=== PATIENT | male | born 1935 | race Caucasian/White ===

== ENCOUNTER 2017-01-12 06:12 | Inpatient (IN) ==
[2017-01-12] MEDS ORDERED: Acetaminophen 325 MG TABLET PO PRN (08:50)
[2017-01-12] MEDS ORDERED: Naloxone 0.4 MG/ML INJ IVP PRN (08:50)
--- NOTE | 2017-01-12 09:25 | Internal Med History&Physical ---
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 We will treat with broad- spectrum antibiotics. Follow blood culture results. If patient begins to make sputum, we will send sputum for culture. De-escalate antibiotics based on culture results. High risk for complications. Continue O2 supplementation. DVT prophylaxis with SCDs alone due to low platelet count. Qualifiers: Pneumonia type: due to methicillin-resistant Staphylococcus aureus (MRSA) Laterality: right Lung location: lower lobe of lung Qualified Code(s): J15.212 - Pneumonia due to Methicillin resistant Staphylococcus aureus (2) Pulmonary edema Current visit: Yes Status: Acute Acute pulmonary edema with shortness of breath. Treated with IV Lasix in the ER. We will continue. We will also get 2-D echocardiogram to look for underlying heart failure. Qualifiers: Chronicity: acute Qualified Code(s): J81.0 - Acute pulmonary edema (3) Neutropenic fever Current visit: Yes Status: Acute Due to CML and treatment for it. Will hold antileukemic agents for now. Consult oncology for further recommendations. (4) Anemia Current visit: Yes Status: Chronic Anemia is improving compared to prior values from earlier this month. Hemoglobin is 8.7. We will monitor blood counts. 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 (6) Acute and chronic respiratory failure with hypoxia Current visit: Yes Status: Acute From pneumonia and pulmonary edema. Continue O2 supplementation. Internal Medicine - H&P: HPI Chief complaint: Shortness of breath Admitted From: Emergency Dept Plans for Post Hospital Care: Home History of present illness: Mr. Parks is a 81 year old male patient with a history of CML, anemia related to it, COPD, hypertension and hyperlipidemia presented to the ER with complaints of acute shortness of breath that woke him up early this morning. He denies any chest pain, but has been having some fever. No nausea or vomiting. He had been admitted to [facility] for anemia earlier this month and received blood transfusion. At that time he had also complained of shortness of breath. Since then he had been prescribed oxygen although he has not yet gotten it set up. He has also noticed creasing swelling in his legs. He has never had any issues with his heart. No palpitations. He does have some dyspnea on exertion. Denies any cough. No hemoptysis. Past Med Surg Social Fam HX - Past Medical History Attestation: Yes The following information was validated with the patient. Medical history: cancer, COPD, hyperlipidemia, hypertension, other Psychiatric history: no psych history - Social History Smoking Status: Former smoker Smokeless Tobacco Status: No Alcohol use: none Drug use: none - Family History Brother Adopted: No Family Member Ethnicity: Non- Living Status: Still Living Hx Family Cardiac Disorders: No Hx Family Respiratory Disorders: Yes Hx Family Cancer: No Hx Family GI Disorders: No Hx Family Endocrine Disorder: No Hx Family Neuromuscular Disorders: No Hx Family Neurologic Disorders: No Hx Family HEENT Disorders: No Internal Medicine - H&P: Meds Aspirin 81 mg PO DAILY 11/29/16 [History] Carvedilol [Coreg] 25 mg PO BID 11/29/16 [History] Cyclobenzaprine [Flexeril] 10 mg PO HS 11/29/16 [History] Dasatinib [Sprycel] 100 mg PO DAILY 11/29/16 [History] Fluticasone/Salmeterol [Advair 100-50 Diskus] 1 puff IH Q12H 11/29/16 [History] Glimepiride [Amaryl] 4 mg PO DAILY 11/29/16 [History] Mirabegron [Myrbetriq] 50 mg PO DAILY 11/29/16 [History] Oxycodone HCl [Roxicodone 30 MG Immed Release] 30 mg PO Q4HR PRN 11/29/16 [ History] Pravastatin Sodium [Pravachol] 40 mg PO DAILY 11/29/16 [History] Zolpidem [Ambien] 5 mg PO HS 11/29/16 [History] Folic Acid 1 mg PO DAILY #90 tablet 12/01/16 [Rx] Levothyroxine [Synthroid] 25 mcg PO 0630 #30 tablet 12/01/16 [Rx] Oxygen 1 each .ROUTE AD #1 each 01/05/17 [Rx] Allergies ciprofloxacin Allergy (Unknown, Verified 01/12/17 04:02) Hives morphine Allergy (Unknown, Verified 01/12/17 04:02) Hallucinating Penicillins Allergy (Unknown, Verified 01/12/17 04:02) Swelling of Lip/Tongue/Throat All Systems PM: A 10-system review of systems was performed and is negative for pertinent findings except as documented above in the HPI. - Constitutional Constitutional: malaise, no chills, no fever(s), no night sweats - EENT Eyes: no change in vision, no discharge, no pain, no photophobia Ears: no ear discharge, no ear pain, no tinnitus Nose, mouth and throat: no dysphagia, no nasal discharge, no neck pain, no sore throat - Cardiovascular Cardiovascular ROS IM: dyspnea on exertion, edema, no chest pain, no diaphoresis , no dyspnea, no lightheadedness, no palpitations, no syncope - Respiratory Respiratory: dyspnea, dyspnea on exertion, no cough, no wheezing, no excessive phlegm production - Gastrointestinal Gastrointestinal: no abdominal pain, no diarrhea, no hematemesis, no hematochezia, no melena, no nausea, no vomiting - Musculoskeletal Musculoskeletal ROS IM: no numbness, no tingling - Integumentary Integumentary IM: no rash, no unusual bruising - Neurological Neurological ROS: no confusion, no convulsions, no focal weakness, no numbness, no tingling, no tremor(s) - Hematologic/Lymphatic Hematologic/Lymphatic: no easy bruising - Constitutional General appearance: Present: cooperative, mild distress, A&O X 3, answers questions appropriately - Eye Eye exam: Present: EOMI, PERRL, conjuntiva pink, sclera anicteric - Respiratory Respiratory exam: Absent: accessory muscle use, rales, rhonchi, wheezes Additional comments: Course breath sounds noted in right lower lobe - Cardiovascular Cardiovascular exam: Present: RRR, +S1, +S2. Absent: diastolic murmur, gallop, rubs, systolic murmur - GI/Abdominal GI/Abdominal exam: Present: normal bowel sounds, soft, no peritoneal signs. Absent: distended, tenderness - Extremities Exam Extremities exam: Present: pedal edema, warm, radial pulses palpable and symetrical. Absent: calf tenderness, cyanotic - Neurological Exam Neurological exam: Present: CN II-XII intact, oriented X3, no focal deficits, strengths equal and symetr throughout. Absent: facial droop, speech deficit - Skin Skin exam: Present: dry, intact Internal Med - H&P Results - Labs Labs: WBC 1.1, hemoglobin 8.7, platelets 59, neutrophils 500, BUN 19, creatinine 1.61 - Impressions Chest x-ray has been reviewed and shows pulmonary edema and focal right lower lobe infiltrate
[2017-01-12] MEDS ORDERED: Vancomycin 1,500 MG in D5% in Water 250 ML IVPB SCH (10:00)
[2017-01-12] MEDS ORDERED: Dextrose Gel 15 GM PO PRN ×2 (10:13)
[2017-01-12] MEDS ORDERED: *HR* Dextrose 50 % in Water (Syg) 50 ML SYRINGE IVP PRN (10:13)
[2017-01-12] MEDS ORDERED: D5% in Water 1,000 ML IVC PRN (10:13)
[2017-01-12] MEDS ORDERED: Vancomycin 1,750 MG in D5% in Water 500 ML IVPB ONE (11:00)
[2017-01-12] MEDS: Cefepime HCl 1,000 MG in D5% in Water (Mini-Bag+) 100 ML IVPB SCH ×2 (11:18→21:49)
[2017-01-12] MEDS: Insulin LISPRO 300 UNITS/3 ML VIAL SQ SCH ×3 (12:06→21:40)
[2017-01-12] MEDS: Furosemide 40 MG/4 ML VIAL IVP SCH (16:19)
--- NOTE | 2017-01-12 19:41 | Oncology Inp Consult Note ---
Date of Encounter: 01/12/17 Time of Encounter: 19:40 - Data of Consult Patient: known to practice within the last 3 years Consult date: 01/12/17 Requesting Physician: Uriel Blackwell MD Primary Care Provider: PCP NO - Consult Narrative Reason for consult: Chronic myelogenous leukemia, pancytopenia. History of present illness: Mr. Parks is a 81 year old male patient who is established with id in the clinic for management of recently diagnosed chronic myelogenous leukemia. I have summarized patient's heme/onc background below based on most recent office report (01/05/17): He initially presented with unexplained hematuria associated with 32Ib weight loss x 3 mths and was incidentally found to have an extremely leukocytosis with a WBC of 190,000 on 11/18 16. This was associated with anemia hemoglobin of 8.7 and normal platelet count. He also had some acute kidney dysfunction with a creatinine of 1.6. Abdomen CT showed significant splenomegaly (21 cm) with concern about infarct/ splenic lesions. He was transferred to [facility] for further evaluation and completed an extensive workup for his CBC abnormalities including: Bone marrow biopsy on 11/20/16 which confirmed presence of Preston chromosome and findings consistent with chronic phase CML with hypercellular marrow (95%). Bone marrow cytogenetics showed positive Preston chromosome in 19 of 20 cells analyzed typical of CML. No other cytogenetic abnormalities of deleterious mutations. Peripheral blood was positive for BCR ABL 1 P210 fusion transcript (41%) confirming CML diagnosis He was initially cyto-reduced with hydroxyurea and ultimately started on dasatinib 100 mg by mouth daily prior to discharge on 11/24/16. Extensive workup did not give an obvious explanation for his hematuria which was managed supportively resulting in improvement of his symptom after course of antibiotics for UTI. He also had hyperuricemia with uric acid of 10.9 on admission and was treated with rasburicase resulting in improvement of his uric acid level. Following improvement in his overall condition, he was discharged to outpatient hematology follow-up and decided to establish ongoing care with us for proximity to his home in [place]. Since his discharge, he has been having CBC monitoring her most recent CBC from 11/27/16 showed a WBC count of 48,000. Patient presents today for ongoing CML management and is accompanied by his daughter Desire who provided additional information. [facility] was kind enough to send the patient's records ahead of today's visit which I reviewed for clinical background. Records have been scanned to EMR as appropriate. At today's visit, he is doing quite well. No new physical complaints. Upon discharge, the made him an appointment to establish with oncology in [place] but he wants to keep his treatment closer and has decided to establish with us. He also has a follow-up appointment with Dr. Shirley Blancas at [facility] but she does not want to keep that appointment if he is able to continue his CML care close to home. Treatment summary: 11/24/16: Started dasatinib 100 mg by mouth daily for CML. Ongoing. Plan is to treat to progression or intolerance. Most recent imaging: CT abdomen and pelvis 11/18/16 at [facility] showed 21 cm splenomegaly with multiple large hypodense splenic lesions of uncertain etiology. Status post hemicolectomy with some bowel adhesions. Ventral and periumbilical hernia. Repeat ultrasound 12/05/16 showed 16 cm splenomegaly. He is currently hospitalized for hypoxemic respiratory failure due to right lower lobe pneumonia in the setting of neutropenic fever and pancytopenia. Over the course of the last several weeks, he has been having problems with cytopenias requiring transfusion most recently on 01/05/17 when we saw him in the office with pancytopenia. He has received a total of 6 units PRBC transfusion since 12/07/16. He cytopenias were treated to dasatinib therapy and was advised to stop dasatinib at his last office visit. Patient himself is somewhat of a poor historian and his daughter was very actively involved in his care and medical decision-makingis not present at time of seeing him. He is unable to verify that he actually did stop taking Sprycel. Workup for his cytopenias reveal fully deficiency and evidence of hypothyroidism and he was started on Synthroid and folate supplement. I am not sure that he has been taking those needed. Oncology is consulted regarding patient's underlying CMML and is currently presenting pancytopenia. Chest x-ray on admission showed cardiomegaly with bilateral pleural effusion. Echocardiogram 01/12/17 showed preserved LV EF. Patient seen and examined at bedside. Chart review for details of ongoing care by hospital team which is much appreciated. He reports significant improvement in his breathing symptoms. He is on supportive measures including: Empiric antibiotic coverage for pneumonia. Diuretics for pulmonary edema. Supplemental O2 for hypoxemic respiratory failure. Sprycel is on hold due to acute illness which I think is very reasonable. Sprycel can cause fluid retention including pulmonary edema and pleural effusion , cytopenias and metabolic abnormalities including thyroid dysfunction. Rest of past medical, surgical, family, social history detailed below and verified with patient today. Review of systems: 12 point review of systems performed with patient and positive findings noted in history of present illness. All other systems are negative: Physical exam: Vital Signs Temp 98.6 F 01/12/17 19:10 Pulse 80 01/12/17 19:10 Resp 18 01/12/17 19:10 BP 165/107 01/12/17 16:07 Pulse Ox 96 01/12/17 19:10 GENERAL: Alert and oriented, dyspenic appearing. Mental Status: Affect appropriate for circumstances HEENT: Sclerae anicteric. No mucositis or thrush. No other oral or pharyngeal lesions or erythema. Skin: No rashes or petechiae. No evidence of skin malignancy Lymph nodes: No cervical, supraclavicular, axillary, or inguinal adenopathy. Lungs: Clear to auscultation bilaterally. Clear to percussion bilaterally. Cardiovascular: Regular rate and rhythm. No gallops, murmurs, or rubs. Abdomen: Soft, nontender; No organomegaly or masses palpable. Extremities: No edema. No calf swelling or tenderness. No joint deformity. Neurologic: Alert, normal gait; no focal weakness or sensory abnormalities. Results: 01/12/17 01/12/17 04:18 04:18 WBC 1.1 L D Hgb 8.7 L D MCV 93.8 Plt Count 59 L D Neutrophils # 0.5 L Lymphocytes # 0.5 L Sodium 139 Potassium 4.3 Chloride 105 Creatinine 1.61 H Calcium 8.5 L Total Bilirubin 1.3 H AST 18 ALT 8 Alkaline Phosphatase 81 Serum Total Protein 7.1 Albumin 3.9 Radiographic studies: I personally reviewed and interpreted patient's most recent imaging studies dated 01/12/17. I discussed the findings with the patient today. Impression/recommendations: Chronic myelogenous leukemia: He has been on treatment with dasatinib since 11/24/16 and appears to have had an excellent response to treatment based on his most recent BCR/abl transcripts which is now down to about 6% from previous of 41% indicating response to ongoing treatment. Due to progressive pancytopenia requiring transfusion, we advised him to stop Sprycel on 01/05/17. I am not sure if he actually stopped Sprycel. I agree with hospitalist decision to hold Sprycel due to his acute illness. Once his overall condition improves, we will discuss options including resume a lower dose of Sprycel versus switching to alternative, less myelosuppressive TKI such as Gleevec or Tasigna. Pancytopenia: Likely multifactorial etiology. He has documented for the deficiency and hypothyroidism. I suspect that is a major contribution from the Sprycel and we will monitor for improvement in his counts while off Gleevec. Continue for the supplement and Synthroid as you are doing. We will transfuse RBC as needed for symptoms and to maintain hemoglobin of 7 or greater. Platelet transfusion to maintain platelet count of 20,000 or greater. He does have a history of treated prostate cancer although no indication of active prostate cancer as most recent PSA from 11/29/16 was undetectable. We'll follow the patient along side you during this hospitalization but please do not hesitate to call regarding interval hematologic questions as they arise. Thank you for your excellent ongoing care for allowing us to see him while in- house. This report was created using voice recognition software and may contain errors. It was signed but not edited to expedite communication. Corrections will be made in a separate addendum as needed. Past Med Surg Social Fam HX - Past Medical History Medical history: cancer, COPD, hyperlipidemia, hypertension, other Psychiatric history: no psych history - Social History Smoking Status: Former smoker Smokeless Tobacco Status: No Alcohol use: none Drug use: none - Family History Brother Adopted: No Family Member Ethnicity: Non- Living Status: Still Living Hx Family Cardiac Disorders: No Hx Family Respiratory Disorders: Yes Hx Family Cancer: No Hx Family GI Disorders: No Hx Family Endocrine Disorder: No Hx Family Neuromuscular Disorders: No Hx Family Neurologic Disorders: No Hx Family HEENT Disorders: No Medications and Allergies Aspirin 81 mg PO DAILY 11/29/16 [History] Carvedilol [Coreg] 25 mg PO BID 11/29/16 [History] Cyclobenzaprine [Flexeril] 10 mg PO HS 11/29/16 [History] Dasatinib [Sprycel] 100 mg PO 1400 11/29/16 [History] Fluticasone/Salmeterol [Advair 100-50 Diskus] 1 puff IH Q12H 11/29/16 [History] Glimepiride [Amaryl] 4 mg PO DAILY 11/29/16 [History] Oxycodone HCl [Roxicodone 30 MG Immed Release] 30 mg PO Q6H PRN 11/29/16 [ History] Pravastatin Sodium [Pravachol] 40 mg PO DAILY 11/29/16 [History] Zolpidem [Ambien] 5 mg PO HS PRN 11/29/16 [History] Folic Acid 1 mg PO DAILY #90 tablet 12/01/16 [Rx] Levothyroxine [Synthroid] 25 mcg PO 0630 #30 tablet 12/01/16 [Rx] Oxygen 1 each .ROUTE AD #1 each 01/05/17 [Rx] Allergies ciprofloxacin Allergy (Unknown, Verified 01/12/17 10:53) Hives morphine Allergy (Unknown, Verified 01/12/17 10:53) Hallucinating Penicillins Allergy (Unknown, Verified 01/12/17 10:53) Swelling of Lip/Tongue/Throat Oncology - Exam - Constitutional Vitals: Temp Pulse Resp BP Pulse Ox 98.6 F 80 18 165/107 96 01/12/17 19:10 01/12/17 19:10 01/12/17 19:10 01/12/17 16:07 01/12/17 19:10 Consult Discharge Plan - Plan Referrals: NO,PCP [Primary Care Provider] -
[2017-01-12] MEDS: Budesonide/Formoterol 80/4.5 MDI IH SCH (20:08)
[2017-01-12] MEDS: *HR* OxyCODONE Immed Rel 15 MG TABLET PO PRN (22:16)
[2017-01-13 05:47] LABS: Mean Corpuscular HGB Conc 33.2 g/dL (31.6-35.5)
[2017-01-13 05:48] LABS: Hematocrit 23.8 % (37.5-50.1); Hemoglobin 7.9 g/dL (12.9-16.9); Lymphocytes # 0.4 K/mcL (0.6-4.6); Lymphocytes % 52.5 %; Mean Corpuscular Hemoglobin 31.2 pg (28.0-33.3); Mean Corpuscular Volume 94.1 fL (83.0-100.0); Mean Platelet Volume 10.6 fL (9.4-12.4); Monocytes % 1.3 %; Neutrophils # 0.3 K/mcL (1.6-8.9); Red Blood Count 2.53 M/mcL (4.19-5.50); Red Cell Distribution Width 20.5 % (11.5-14.5); Segmented Neutrophils % 41.2 %
[2017-01-13 06:01] LABS: Calcium 8.4 mg/dL (8.6-10.8); Potassium 3.8 mEq/L (3.5-4.5)
[2017-01-13 06:08] LABS: Platelet Count 66 K/mcL (140-400)
[2017-01-13 06:17] LABS: Anisocytosis 2+ (Not Present); Polychromasia 2+ (Not Present)
[2017-01-13] MEDS: Levothyroxine 25 MCG TABLET PO SCH (06:17)
[2017-01-13 06:18] LABS: Platelet Estimate Marked Decrease (Normal); Poikilocytosis 1+ (Not Present)
[2017-01-13] MEDS: Budesonide/Formoterol 80/4.5 MDI IH SCH ×2 (07:51→20:09)
[2017-01-13] MEDS: Insulin LISPRO 300 UNITS/3 ML VIAL SQ SCH ×4 (08:30→21:16)
[2017-01-13] MEDS: Cefepime HCl 1,000 MG in D5% in Water (Mini-Bag+) 100 ML IVPB SCH (08:30)
[2017-01-13] MEDS: Levofloxacin 750 MG/150 ML 750 MG/150 ML BAG IVPB SCH (08:30)
[2017-01-13] MEDS: Aspirin 81 MG TAB.CHEW PO SCH (08:30)
[2017-01-13] MEDS: Folic Acid 1 MG TABLET PO SCH (08:30)
[2017-01-13] MEDS: Furosemide 40 MG/4 ML VIAL IVP SCH ×2 (08:30→17:07)
--- NOTE | 2017-01-13 10:48 | Internal Med Progress Note ---
Date of Encounter: 01/13/17 Time of Encounter: 10:45 - Assessment and plan (1) Neutropenic fever Current Visit: Yes Status: Acute Assessment and plan: Possibly secondary to chemotherapy, diagnosed with healthcare associated pneumonia present upon admission in the setting of acute neutropenic fever Increased dose of cefepime to 2000 mg twice a day, continue Levaquin and vancomycin IV Neutropenic precautions, neutropenic diet Followed by oncology Sputum culture (2) Diastolic CHF Current Visit: Yes Status: Acute Assessment and plan: Echocardiac exam shows an ejection fraction of 60-65% with mild diastolic dysfunction Continue Lasix IV, strict I's and O's and daily weight Qualifiers: Congestive heart failure chronicity: acute Qualified Code(s): I50.31 - Acute diastolic (congestive) heart failure (3) Chronic kidney disease, stage III (moderate) Current Visit: Yes Status: Acute (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 showed significant splenomegaly (21 cm) with concern about infarct/ splenic lesions. He was transferred to [facility] for further evaluation and completed an extensive workup for his CBC abnormalities including: Bone marrow biopsy on 11/20/16 which confirmed presence of Novelty chromosome and findings consistent with chronic phase CML with hypercellular marrow (95%). Bone marrow cytogenetics showed positive Novelty chromosome in 19 of 20 cells analyzed typical of CML. No other cytogenetic abnormalities of deleterious mutations. Peripheral blood was positive for BCR ABL 1 P210 fusion transcript (41%) confirming CML diagnosis (5) Pulmonary edema Current Visit: Yes Status: Acute Assessment and plan: Secondary to diastolic CHF Qualifiers: Chronicity: acute Qualified Code(s): J81.0 - Acute pulmonary edema (6) Pancytopenia Current Visit: Yes Status: Acute Assessment and plan: Secondary to CML - Subjective Interval history: has been complaining of increased phlegm production , bilateral costal pleuritic pain, no fever, no abdominal pain , no dysuria, no diarrhea, no CP - Constitutional Vitals: Temp Pulse Resp BP Pulse Ox 98.0 F 84 18 166/71 96 01/13/17 08:29 01/13/17 08:29 01/13/17 08:29 01/13/17 08:29 01/13/17 08:29 General appearance: Present: cooperative, mild distress, A&O X 3, answers questions appropriately - Head Head exam: Present: atraumatic, normocephalic - Eye Eye exam: Present: PERRL, conjuntiva pink, sclera anicteric Pupils: Present: PERRL - Neck Neck exam general surgery: Present: supple, trachea midline. Absent: lymphadenopathy - Respiratory Respiratory exam: Present: CTAB, rales (Bibasilar blunted breath sounds with minimal crackles). Absent: accessory muscle use, rhonchi, wheezes - Cardiovascular Cardiovascular exam: Present: RRR, +S1, +S2. Absent: diastolic murmur, gallop, rubs, systolic murmur - GI/Abdominal GI/Abdominal exam: Present: normal bowel sounds, soft, no peritoneal signs. Absent: distended, tenderness - Extremities Exam Extremities exam: Present: pedal edema (+1 pitting edema both lower extremities) , warm, radial pulses palpable and symetrical. Absent: calf tenderness, cyanotic - Neurological Exam Neurological exam: Present: CN II-XII intact, oriented X3, no focal deficits. Absent: pronater drift, facial droop, speech deficit - Skin Skin exam: Present: dry, intact Internal Medicine: Result - Labs CBC & Chem 7: 01/13/17 04:34 01/13/17 04:34 Labs: Short CBC 01/13/17 Range/Units 04:34 WBC 0.8 L* (4.3-11.1) K/mcL Hgb 7.9 L (12.9-16.9) g/dL Hct 23.8 L (37.5-50.1) % Plt Count 66 L (140-400) K/mcL Neutrophils # 0.3 L (1.6-8.9) K/mcL BMP 01/13/17 04:34 Sodium 140 Potassium 3.8 Chloride 105 Carbon Dioxide 27 BUN 20 Creatinine 1.57 H Glucose 92 Calcium 8.4 L - VTE Documentation of Mechanical Device: Intermittent pneumatic compression device Consult Discharge Plan - Plan Referrals: NO,PCP [Primary Care Provider] -
[2017-01-13] MEDS: Cefepime HCl 2,000 MG in D5% in Water (Mini-Bag+) 100 ML IVPB SCH ×2 (11:25→17:07)
[2017-01-13] MEDS: *HR* OxyCODONE Immed Rel 15 MG TABLET PO PRN (11:34)
[2017-01-13] MEDS: Vancomycin 1,500 MG in D5% in Water 250 ML IVPB SCH (12:37)
[2017-01-14 06:22] LABS: Eosinophils % 5.2 %; Hematocrit 22.2 % (37.5-50.1); Hemoglobin 7.6 g/dL (12.9-16.9); Lymphocytes # 0.4 K/mcL (0.6-4.6); Lymphocytes % 51.9 %; Mean Corpuscular HGB Conc 34.2 g/dL (31.6-35.5); Mean Corpuscular Hemoglobin 31.7 pg (28.0-33.3); Mean Corpuscular Volume 92.5 fL (83.0-100.0); Mean Platelet Volume 10.5 fL (9.4-12.4); Monocytes % 2.6 %; Neutrophils # 0.3 K/mcL (1.6-8.9); Red Cell Distribution Width 20.4 % (11.5-14.5); Segmented Neutrophils % 40.3 %
[2017-01-14 06:30] LABS: Platelet Count 74 K/mcL (140-400)
[2017-01-14 06:32] LABS: Calcium 8.5 mg/dL (8.6-10.8); Potassium 3.8 mEq/L (3.5-4.5)
[2017-01-14] MEDS: Cefepime HCl 2,000 MG in D5% in Water (Mini-Bag+) 100 ML IVPB SCH ×2 (06:38→17:57)
[2017-01-14] MEDS: Levothyroxine 25 MCG TABLET PO SCH (06:39)
[2017-01-14] MEDS: *HR* OxyCODONE Immed Rel 15 MG TABLET PO PRN ×3 (06:45→22:07)
[2017-01-14 07:30] LABS: Platelet Estimate Decreased (Normal)
[2017-01-14] MEDS: Budesonide/Formoterol 80/4.5 MDI IH SCH ×2 (07:30→20:43)
[2017-01-14 07:31] LABS: Anisocytosis 2+ (Not Present); Poikilocytosis 1+ (Not Present)
[2017-01-14] MEDS: Furosemide 40 MG/4 ML VIAL IVP SCH ×2 (08:53→16:10)
[2017-01-14] MEDS: Aspirin 81 MG TAB.CHEW PO SCH (08:53)
[2017-01-14] MEDS: Folic Acid 1 MG TABLET PO SCH (08:53)
[2017-01-14] MEDS: Insulin LISPRO 300 UNITS/3 ML VIAL SQ SCH ×4 (08:54→22:13)
[2017-01-14] MEDS: Vancomycin 1,500 MG in D5% in Water 250 ML IVPB SCH (11:45)
--- NOTE | 2017-01-14 12:23 | Internal Med Progress Note ---
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, diagnosed with healthcare associated pneumonia present upon admission in the setting of acute neutropenic fever Chest x-ray showed right lower lobe opacity compatible with pneumonia On cefepime to 2000 mg twice a day, continue Levaquin and vancomycin IV day 2 Neutropenic precautions, neutropenic diet Hold Sprycel Followed by oncology Sputum culture (2) Diastolic CHF Current Visit: Yes Status: Acute Assessment and plan: Echocardiac exam shows an ejection fraction of 60-65% with mild diastolic dysfunction Continue Lasix IV, strict I's and O's and daily weight Qualifiers: Congestive heart failure chronicity: acute Qualified Code(s): I50.31 - Acute diastolic (congestive) heart failure (3) Chronic kidney disease, stage III (moderate) Current Visit: Yes Status: Acute (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 showed significant splenomegaly (21 cm) with concern about infarct/ splenic lesions. He was transferred to [facility] for further evaluation and completed an extensive workup for his CBC abnormalities including: Bone marrow biopsy on 11/20/16 which confirmed presence of [place] chromosome and findings consistent with chronic phase CML with hypercellular marrow (95%). Bone marrow cytogenetics showed positive [place] chromosome in 19 of 20 cells analyzed typical of CML. No other cytogenetic abnormalities of deleterious mutations. Peripheral blood was positive for BCR ABL 1 P210 fusion transcript (41%) confirming CML diagnosis (5) Pulmonary edema Current Visit: Yes Status: Acute Assessment and plan: Secondary to diastolic CHF Qualifiers: Chronicity: acute Qualified Code(s): J81.0 - Acute pulmonary edema (6) Pancytopenia Current Visit: Yes Status: Acute Assessment and plan: Secondary to CML - Subjective Interval history: Mentions he has less phlegm production , bilateral costal pleuritic pain has improved, no fever, no abdominal pain , no dysuria, no diarrhea, no CP - Constitutional Vitals: Temp Pulse Resp BP Pulse Ox 98.2 F 96 20 139/67 96 01/14/17 08:31 01/14/17 08:31 01/14/17 08:31 01/14/17 08:31 01/14/17 08:31 General appearance: Present: cooperative, mild distress, A&O X 3, answers questions appropriately - Head Head exam: Present: atraumatic, normocephalic - Eye Eye exam: Present: PERRL, conjuntiva pink, sclera anicteric Pupils: Present: PERRL - Neck Neck exam general surgery: Present: supple, trachea midline. Absent: lymphadenopathy - Respiratory Respiratory exam: Present: CTAB. Absent: accessory muscle use, rales, rhonchi, wheezes - Cardiovascular Cardiovascular exam: Present: RRR, +S1, +S2. Absent: diastolic murmur, gallop, rubs, systolic murmur - GI/Abdominal GI/Abdominal exam: Present: normal bowel sounds, soft, no peritoneal signs. Absent: distended, tenderness - Extremities Exam Extremities exam: Present: warm, radial pulses palpable and symetrical. Absent : calf tenderness, cyanotic, pedal edema - Neurological Exam Neurological exam: Present: CN II-XII intact, oriented X3, no focal deficits. Absent: pronater drift, facial droop, speech deficit - Skin Skin exam: Present: dry, intact Internal Medicine: Result - Labs CBC & Chem 7: 01/14/17 06:09 01/14/17 06:09 Labs: Short CBC 01/14/17 Range/Units 06:09 WBC 0.8 L* (4.3-11.1) K/mcL Hgb 7.6 L (12.9-16.9) g/dL Hct 22.2 L (37.5-50.1) % Plt Count 74 L (140-400) K/mcL Neutrophils # 0.3 L (1.6-8.9) K/mcL BMP 01/14/17 06:09 Sodium 140 Potassium 3.8 Chloride 104 Carbon Dioxide 24 BUN 19 Creatinine 1.54 H Glucose 105 H Calcium 8.5 L - VTE Documentation of Mechanical Device: Intermittent pneumatic compression device Consult Discharge Plan - Plan Referrals: NO,PCP [Primary Care Provider] -
[2017-01-14] MEDS: Ondansetron 4 MG/2 ML VIAL IVP PRN (22:07)
[2017-01-15 03:20] LABS: Hemoglobin 7.3 g/dL (12.9-16.9)
[2017-01-15 03:22] LABS: Eosinophils # 0.1 K/mcL (0.0-0.6); Hematocrit 22.1 % (37.5-50.1); Immature Granulocytes % 1.2 % (0-4); Lymphocytes # 0.5 K/mcL (0.6-4.6); Lymphocytes % 52.3 %; Mean Corpuscular Hemoglobin 30.9 pg (28.0-33.3); Mean Corpuscular Volume 93.6 fL (83.0-100.0); Monocytes % 2.3 %; Neutrophils # 0.3 K/mcL (1.6-8.9); Red Blood Count 2.36 M/mcL (4.19-5.50); Red Cell Distribution Width 20.8 % (11.5-14.5); Segmented Neutrophils % 37.2 %
[2017-01-15 03:34] LABS: Calcium 8.5 mg/dL (8.6-10.8); Potassium 3.7 mEq/L (3.5-4.5)
[2017-01-15 03:42] LABS: Platelet Count 84 K/mcL (140-400)
[2017-01-15 03:45] LABS: Anisocytosis 2+ (Not Present); Macrocytosis Present (Not Present); Platelet Estimate Decreased (Normal); Polychromasia 1+ (Not Present)
[2017-01-15] MEDS: Cefepime HCl 2,000 MG in D5% in Water (Mini-Bag+) 100 ML IVPB SCH ×2 (06:44→17:52)
[2017-01-15] MEDS: *HR* OxyCODONE Immed Rel 15 MG TABLET PO PRN ×2 (06:45→12:52)
[2017-01-15] MEDS: Levothyroxine 25 MCG TABLET PO SCH (06:45)
[2017-01-15] MEDS: Insulin LISPRO 300 UNITS/3 ML VIAL SQ SCH ×4 (07:52→20:54)
[2017-01-15] MEDS: Furosemide 40 MG/4 ML VIAL IVP SCH (08:03)
[2017-01-15] MEDS: Levofloxacin 750 MG/150 ML 750 MG/150 ML BAG IVPB SCH (08:04)
[2017-01-15] MEDS: Aspirin 81 MG TAB.CHEW PO SCH (08:04)
[2017-01-15] MEDS: Folic Acid 1 MG TABLET PO SCH (08:04)
--- NOTE | 2017-01-15 09:02 | Internal Med Progress Note ---
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, diagnosed with healthcare associated pneumonia present upon admission in the setting of acute neutropenic fever Chest x-ray showed right lower lobe opacity compatible with pneumonia continue cefepime and Levaquin day 3 discontinue vancomycin IV at day 3 ( BP normal and creatinin is raising) Neutropenic precautions, neutropenic diet Hold Sprycel Followed by oncology Sputum culture (2) Diastolic CHF Current Visit: Yes Status: Acute Assessment and plan: Echocardiac exam shows an ejection fraction of 60-65% with mild diastolic dysfunction much improved Stop Lasix IV, strict I's and O's and daily weight Qualifiers: Congestive heart failure chronicity: acute Qualified Code(s): I50.31 - Acute diastolic (congestive) heart failure (3) Chronic kidney disease, stage III (moderate) Current Visit: Yes Status: Acute (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 showed significant splenomegaly (21 cm) with concern about infarct/ splenic lesions. He was transferred to [facility] for further evaluation and completed an extensive workup for his CBC abnormalities including: Bone marrow biopsy on 11/20/16 which confirmed presence of [place] chromosome and findings consistent with chronic phase CML with hypercellular marrow (95%). Bone marrow cytogenetics showed positive [place] chromosome in 19 of 20 cells analyzed typical of CML. No other cytogenetic abnormalities of deleterious mutations. Peripheral blood was positive for BCR ABL 1 P210 fusion transcript (41%) confirming CML diagnosis (5) Pulmonary edema Current Visit: Yes Status: Acute Assessment and plan: Secondary to diastolic CHF Qualifiers: Chronicity: acute Qualified Code(s): J81.0 - Acute pulmonary edema (6) Pancytopenia Current Visit: Yes Status: Acute Assessment and plan: Secondary to CML - Subjective Interval history: Mentioned that he has less phlegm production , bilateral costal pleuritic pain has improved, no fever, no abdominal pain , no dysuria, no diarrhea, no CP, leg edema has come down - Constitutional Vitals: Temp Pulse Resp BP Pulse Ox 97.5 F L 90 18 111/61 95 01/15/17 07:35 01/15/17 07:35 01/15/17 07:35 01/15/17 07:35 01/15/17 08:08 General appearance: Present: cooperative, mild distress, A&O X 3, answers questions appropriately - Head Head exam: Present: atraumatic, normocephalic - Eye Eye exam: Present: PERRL, conjuntiva pink, sclera anicteric Pupils: Present: PERRL - Neck Neck exam general surgery: Present: supple, trachea midline. Absent: lymphadenopathy - Respiratory Respiratory exam: Present: decreased breath sounds, CTAB. Absent: accessory muscle use, rales, rhonchi, wheezes - Cardiovascular Cardiovascular exam: Present: RRR, +S1, +S2. Absent: diastolic murmur, gallop, rubs, systolic murmur - GI/Abdominal GI/Abdominal exam: Present: normal bowel sounds, soft, no peritoneal signs. Absent: distended, tenderness - Extremities Exam Extremities exam: Present: warm, radial pulses palpable and symetrical. Absent : calf tenderness, cyanotic, pedal edema - Neurological Exam Neurological exam: Present: CN II-XII intact, oriented X3, no focal deficits. Absent: pronater drift, facial droop, speech deficit - Skin Skin exam: Present: dry, intact Internal Medicine: Result - Labs CBC & Chem 7: 01/15/17 03:06 01/15/17 03:06 Labs: Short CBC 01/15/17 Range/Units 03:06 WBC 0.9 L* (4.3-11.1) K/mcL Hgb 7.3 L (12.9-16.9) g/dL Hct 22.1 L (37.5-50.1) % Plt Count 84 L (140-400) K/mcL Neutrophils # 0.3 L (1.6-8.9) K/mcL BMP 01/15/17 03:06 Sodium 139 Potassium 3.7 Chloride 103 Carbon Dioxide 27 BUN 22 Creatinine 1.82 H Glucose 105 H Calcium 8.5 L - VTE Documentation of Mechanical Device: Intermittent pneumatic compression device Consult Discharge Plan - Plan Referrals: NO,PCP [Primary Care Provider] -
[2017-01-15] MEDS ORDERED: Aminoglycoside Consult 1 EACH MC ONE (10:03)
[2017-01-15] MEDS: Budesonide/Formoterol 80/4.5 MDI IH SCH ×2 (11:00→20:43)
[2017-01-15] MEDS: Ondansetron 4 MG/2 ML VIAL IVP PRN (16:22)
[2017-01-16 04:45] LABS: Hemoglobin 6.8 g/dL (12.9-16.9); Red Cell Distribution Width 21.1 % (11.5-14.5)
[2017-01-16 04:46] LABS: Hematocrit 20.6 % (37.5-50.1); Mean Corpuscular Hemoglobin 31.1 pg (28.0-33.3); Mean Corpuscular Volume 94.1 fL (83.0-100.0); Mean Platelet Volume 10.7 fL (9.4-12.4); Red Blood Count 2.19 M/mcL (4.19-5.50); Segmented Neutrophils % 38.1 %
[2017-01-16 04:47] LABS: Eosinophils % 5.6 %; Immature Granulocytes % 1.4 % (0-4); Lymphocytes # 0.4 K/mcL (0.6-4.6); Lymphocytes % 50.7 %; Monocytes % 4.2 %; Neutrophils # 0.3 K/mcL (1.6-8.9)
[2017-01-16 05:00] LABS: Calcium 8.7 mg/dL (8.6-10.8); Potassium 3.9 mEq/L (3.5-4.5)
[2017-01-16 05:18] LABS: Platelet Count 98 K/mcL (140-400)
[2017-01-16 05:21] LABS: Platelet Estimate Marked Decrease (Normal)
[2017-01-16] MEDS: Levothyroxine 25 MCG TABLET PO SCH (05:47)
[2017-01-16] MEDS: Cefepime HCl 2,000 MG in D5% in Water (Mini-Bag+) 100 ML IVPB SCH (05:47)
[2017-01-16] MEDS: Folic Acid 1 MG TABLET PO SCH (08:47)
[2017-01-16] MEDS: Aspirin 81 MG TAB.CHEW PO SCH (08:48)
[2017-01-16] MEDS: Pantoprazole 40 MG VIAL IVP SCH (08:48)
[2017-01-16] MEDS: Insulin LISPRO 300 UNITS/3 ML VIAL SQ SCH ×4 (08:50→20:12)
[2017-01-16] MEDS: *HR* OxyCODONE Immed Rel 15 MG TABLET PO PRN ×3 (08:52→20:10)
[2017-01-16] MEDS: Budesonide/Formoterol 80/4.5 MDI IH SCH ×2 (10:28→21:11)
[2017-01-16] MEDS ORDERED: 0.9 % Sodium Chloride 250 ML ONE (17:47)
--- NOTE | 2017-01-16 18:12 | Internal Med Progress Note ---
Date of Encounter: 01/16/17 Time of Encounter: 15:00 - Assessment and plan (1) Chronic diastolic heart failure Current Visit: Yes Status: Acute Assessment and plan: He was taking Lasix at home. Currently creatinine is increasing. Lasix was held. I will continue to hold and monitor clinically. (2) DVT prophylaxis Current Visit: Yes Status: Acute Assessment and plan: SCDs only as he is a not a candidate for pharmacological prophylaxis due to thrombocytopenia. Once platelet count greater than 100 we will consider starting heparin subcutaneous. 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 showed significant splenomegaly (21 cm) with concern about infarct/ splenic lesions. He was transferred to [facility] for further evaluation and completed an extensive workup for his CBC abnormalities including: Bone marrow biopsy on 11/20/16 which confirmed presence of [place] chromosome and findings consistent with chronic phase CML with hypercellular marrow (95%). Bone marrow cytogenetics showed positive [place] chromosome in 19 of 20 cells analyzed typical of CML. No other cytogenetic abnormalities of deleterious mutations. Peripheral blood was positive for BCR ABL 1 P210 fusion transcript (41%) confirming CML diagnosis (4) Neutropenic fever Current Visit: Yes Status: Acute Assessment and plan: 12/16/2016: We will continue with cefepime and Levaquin. Follow-up cultures. 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 (6) Chronic kidney disease, stage III (moderate) Current Visit: Yes Status: Acute Assessment and plan: Worsening today. Likely acute on chronic renal failure. We will avoid nephrotoxins. We will start IV fluids are atenolol 1000 mL. Monitor kidney function. If worsening will obtain imaging. - Subjective Interval history: 01/16/2017: The patient was admitted 4 days ago and treated for neutropenic fever and pneumonia. Today he has confused and agitated and cannot provide any history due to delirium. - Constitutional Vitals: Temp Pulse Resp BP Pulse Ox 97.6 F 86 18 151/60 93 01/16/17 15:17 01/16/17 15:17 01/16/17 15:17 01/16/17 15:17 01/16/17 15:17 General appearance: Present: cooperative, A&O X 1, mild distress, answers questions appropriately - Neck Neck exam general surgery: Present: supple, trachea midline. Absent: lymphadenopathy - Respiratory Respiratory exam: Present: CTAB. Absent: accessory muscle use, rales, rhonchi, wheezes - Cardiovascular Cardiovascular exam: Present: RRR, +S1, +S2. Absent: diastolic murmur, gallop, rubs, systolic murmur - GI/Abdominal GI/Abdominal exam: Present: normal bowel sounds, soft, no peritoneal signs. Absent: distended, tenderness - Extremities Exam Extremities exam: Present: warm, radial pulses palpable and symetrical. Absent : calf tenderness, cyanotic, pedal edema - Skin Skin exam: Present: dry, intact Internal Medicine: Result - Labs CBC & Chem 7: 01/16/17 03:54 01/16/17 03:54 Labs: Short CBC 01/16/17 Range/Units 03:54 WBC 0.7 L* (4.3-11.1) K/mcL Hgb 6.8 L (12.9-16.9) g/dL Hct 20.6 L (37.5-50.1) % Plt Count 98 L (140-400) K/mcL Neutrophils # 0.3 L (1.6-8.9) K/mcL BMP 01/16/17 03:54 Sodium 136 Potassium 3.9 Chloride 100 Carbon Dioxide 27 BUN 31 H Creatinine 2.31 H Glucose 103 H Calcium 8.7 - VTE Documentation of Mechanical Device: Intermittent pneumatic compression device Consult Discharge Plan - Plan Referrals: NO,PCP [Primary Care Provider] - (patient is seeing with regina) Hima Zuniga MD [Partnered Physician] - 01/19/17 1:10 pm
[2017-01-16] MEDS ORDERED: 0.9 % Sodium Chloride 1,000 ML IVC SCH (18:15)
[2017-01-17] MEDS ORDERED: Haloperidol Lactate 5 MG/ML VIAL IM ONE ×2 (04:04→04:24)
[2017-01-17] MEDS ORDERED: Haloperidol Lactate 5 MG/ML VIAL ONE (04:19)
[2017-01-17] MEDS ORDERED: *HR* LORazepam 2 MG/ML VIAL ONE (04:23)
[2017-01-17] MEDS ORDERED: *HR* LORazepam 2 MG/ML VIAL IVP ONE (04:24)
[2017-01-17] MEDS: Cefepime HCl 2,000 MG in D5% in Water (Mini-Bag+) 100 ML IVPB SCH (06:19)
[2017-01-17] MEDS: Levothyroxine 25 MCG TABLET PO SCH (06:20)
[2017-01-17] MEDS: Budesonide/Formoterol 80/4.5 MDI IH SCH ×2 (07:55→20:23)
[2017-01-17] MEDS: Pantoprazole 40 MG VIAL IVP SCH (08:14)
[2017-01-17] MEDS: Levofloxacin 750 MG/150 ML 750 MG/150 ML BAG IVPB SCH (08:14)
--- NOTE | 2017-01-17 08:29 | Electrocardiograph Report ---
[place] [id number] Test Date: 2017-01-15 Pat Name: Bulmaro Parks Department: 112 Room: 2A11 Gender: M [employer] Operator: CASSIE : [id number] Requested By: Piyush Olivo Order Number: [id number] Reading MD: Graeme Sesay MD Measurements Intervals [place] Rate: 78 P: 18 MI: 187 QRS: 9 QRSD: 158 T: 26 QT: 410 QTc: 443 Interpretive Statements SINUS RHYTHM WITH OCCASIONAL SUPRAVENTRICULAR PREMATURE COMPLEXES RIGHT BUNDLE BRANCH BLOCK Electronically Signed On 01-17-2017 8:27:17 EDT by Graeme Sesay MD
[2017-01-17] MEDS: Folic Acid 1 MG TABLET PO SCH (08:53)
[2017-01-17] MEDS: Insulin LISPRO 300 UNITS/3 ML VIAL SQ SCH ×4 (08:53→21:25)
[2017-01-17] MEDS: Aspirin 81 MG TAB.CHEW PO SCH (08:53)
--- NOTE | 2017-01-17 09:59 | Oncology Inp Progress Note ---
Date of Encounter: 01/17/17 Time of Encounter: 09:39 Oncology: Subj Interval history: History of present illness: Patient seen and examined at bedside. Chart reviewed for interval details and appreciate ongoing management by hospital team. Patient continues to struggle with multiorgan system issues including: CHF: He is on Lasix but Lasix on hold due to rising creatinine oncology. 2 acute on chronic kidney injury. Acute on chronic hypoxemic respiratory failure: He is on supplemental O2. Anemia: Mobility without low as 6.8 yesterday. He received 1 unit of packed red cell transfusion. Pancytopenia: Thrombocytopenia improving. Anemia is managed supportively with transfusion. Neutropenia is persistent. He was previously documented with folate deficiency and is on folate supplement. Neutropenic fever: Blood cultures negative to date. Sputum culture positive for strep pneumonia. He is on empiric antibiotic coverage with cefepime and Levaquin. Vancomycin stopped due to kidney dysfunction. Sprycel was on hold due to concern about contusion to pancytopenia. Encephalopathy: Etiology unclear. Attributable to the toxic/metabolic etiology with conservation from medications (opioids), kidney dysfunction, sepsis. Patient is sedated due to severe delirium overnight and is unable to give any history. Events from overnight noted a nursing documentation and discuss with nursing staff. His comfortable appearance in no distress. He did not allow blood draw for CBC this morning. No other new issues. Review of systems: 12 point review of systems as noted above.All other systems are negative: Physical exam: Vital Signs Temp 98.5 F 01/17/17 05:31 Pulse 102 01/17/17 07:11 Resp 17 01/17/17 07:11 BP 138/56 01/17/17 07:11 Pulse Ox 92 01/17/17 05:31 Intake & Output 01/16/17 01/17/17 01/17/17 12:59 00:59 12:59 Intake Total 240 / 240 1050 / 1050 0 / 0 Output Total 450 / 450 Balance 240 / 240 600 / 600 0 / 0 Weight 88.9 kg 89 kg Intake: Oral 240 / 240 350 / 350 0 / 0 Blood Product 700 / 700 Rbcs Leuko Poor As-3 2nd 700 / 700 Unit [id number] Output: Urine 450 / 450 Other: Meal Breakfast pt refused Percent of Meal Consumed 95% 0% # Voids 1 Blood Glucose* 130 127 GENERAL: Alert and oriented, lethargic appearing. Mental Status: Affect appropriate for circumstances Skin: No rashes or petechiae. No evidence of skin malignancy Extremities: No edema. No calf swelling or tenderness. No joint deformity. Neurologic: Global weakness but no focal sensorimotor abnormalities. Results: Laboratory Last Values WBC 0.7 K/mcL (4.3-11.1) L* 01/16/17 03:54 RBC 2.19 M/mcL (4.19-5.50) L 01/16/17 03:54 Hgb 6.8 g/dL (12.9-16.9) L 01/16/17 03:54 Hct 20.6 % (37.5-50.1) L 01/16/17 03:54 MCV 94.1 fL (83.0-100.0) 01/16/17 03:54 MCH 31.1 pg (28.0-33.3) 01/16/17 03:54 MCHC 33.0 g/dL (31.6-35.5) 01/16/17 03:54 RDW 21.1 % (11.5-14.5) H 01/16/17 03:54 Plt Count 98 K/mcL (140-400) L 01/16/17 03:54 MPV 10.7 fL (9.4-12.4) 01/16/17 03:54 Immature Gran % 1.4 % (0-4) 01/16/17 03:54 Seg Neutrophils % 38.1 % 01/16/17 03:54 Lymphocytes % 50.7 % 01/16/17 03:54 Monocytes % 4.2 % 01/16/17 03:54 Eosinophils % 5.6 % 01/16/17 03:54 Basophils % 0.0 % 01/16/17 03:54 Neutrophils # 0.3 K/mcL (1.6-8.9) L 01/16/17 03:54 Lymphocytes # 0.4 K/mcL (0.6-4.6) L 01/16/17 03:54 Monocytes # 0.0 K/mcL (0.0-1.3) 01/16/17 03:54 Eosinophils # 0.0 K/mcL (0.0-0.6) 01/16/17 03:54 Basophils # 0.0 K/mcL (0.0-0.2) 01/16/17 03:54 Platelet Estimate Marked Decrease (Normal) L 01/16/17 03:54 Polychromasia 1+ (Not Present) A 01/15/17 03:06 Poikilocytosis 1+ (Not Present) A 01/14/17 06:09 Anisocytosis 2+ (Not Present) A 01/15/17 03:06 Macrocytosis Present (Not Present) A 01/15/17 03:06 Sodium 136 mEq/L (136-145) 01/16/17 03:54 Potassium 3.9 mEq/L (3.5-4.5) 01/16/17 03:54 Chloride 100 mEq/L (98-109) 01/16/17 03:54 Carbon Dioxide 27 mEq/L (19-29) 01/16/17 03:54 BUN 31 mg/dL (8-26) H 01/16/17 03:54 Creatinine 2.31 mg/dL (0.72-1.25) H 01/16/17 03:54 Est GFR ( Amer) 33 (> 60) L 01/16/17 03:54 Est GFR (Non-Af Amer) 27 (> 60) L 01/16/17 03:54 BUN/Creatinine Ratio 13 (6-26) 01/16/17 03:54 Glucose 103 mg/dL (70-99) H 01/16/17 03:54 POC Glucose 127 (58-89) H 01/16/17 20:09 Calculated Osmolality 289 (280-300) 01/16/17 03:54 Calcium 8.7 mg/dL (8.6-10.8) 01/16/17 03:54 Troponin I 0.00 ng/mL (0-0.03) 01/15/17 17:24 Lipase 19 Units/L (8-78) 01/15/17 17:24 Blood Type O POSITIVE 01/16/17 17:06 Antibody Screen NEGATIVE 01/16/17 17:06 Crossmatch See Detail 01/16/17 17:06 Radiographic studies: Impression/recommendations: Chronic myelogenous leukemia: Most recent BCR/abl transcripts which is now down to about 6% from previous of 41% indicating response to ongoing treatment. Due to progressive pancytopenia requiring transfusion, Sprycel has been on hold since admission. Once his overall condition improves, we will discuss options including resume a lower dose of Sprycel versus switching to alternative, less myelosuppressive TKI such as Gleevec or Tasigna. Pancytopenia: Likely multifactorial etiology. He has documented for the deficiency and hypothyroidism. I suspect that is a major contribution from the Sprycel and we will monitor for improvement in his counts while off Gleevec. Continue folate and supplement and Synthroid as you are doing. I'm not sure if anemia is continued into his encephalopathy and I would recommend to transfuse 2 units of packed red cells in addition to already transfuse 1 unit yesterday. For neutropenia, we'll recommend to start Neupogen 300 mg subcutaneous daily from today given concern about sepsis. We'll continue to ANC is greater than 1500 on 2 consecutive days and then stop. Thrombocytopenia improving without intervention. We'll continue monitoring. Platelet transfusion to maintain platelet count of 20,000 or greater. He does have a history of treated prostate cancer although no indication of active prostate cancer as most recent PSA from 11/29/16 was undetectable. We'll follow the patient along side you during this hospitalization but please do not hesitate to call regarding interval hematologic questions as they arise. Thank you for your excellent ongoing care for allowing us to see him while in- house. I left a voice message for his daughter Car on phone number on record and left callback number for her to call with hematologic questions or concerns regarding patient's care. - Constitutional Vitals: Vital Signs Temp Pulse Resp BP Pulse Ox 01/17/17 07:11 102 17 138/56 01/17/17 05:31 98.5 F 83 26 114/49 92 01/16/17 23:41 98.0 F 87 19 138/67 98 01/16/17 21:35 97.7 F 78 16 112/62 96 01/16/17 21:14 14 98 01/16/17 19:05 98.2 F 72 16 114/60 96 01/16/17 18:50 98.2 F 74 16 116/62 95 01/16/17 15:17 97.6 F 86 18 151/60 93 01/16/17 11:05 98.1 F 81 18 105/61 94 01/16/17 10:28 18 97 Intake and Output 01/17/17 01/17/17 01/17/17 00:59 08:59 16:59 Intake Total 1050 / 1050 0 / 0 Output Total 450 / 450 Balance 600 / 600 0 / 0 Intake: Oral 350 / 350 0 / 0 Blood Product 700 / 700 Rbcs Leuko Poor As-3 2nd 700 / 700 Unit [id number] Output: Urine 450 / 450 Other: Meal pt refused Percent of Meal Consumed 0% # Voids 1 Weight 89 kg Blood Glucose* 127 Patient Weight 01/18/17 00:59 Weight 89 kg Oncology: Obj Data - Labs CBC & Chem 7: 01/16/17 03:54 01/16/17 03:54 Labs: Laboratory Results - last 24 hr 01/16/17 01/16/17 01/16/17 07:49 11:08 15:22 POC Glucose 95 H 130 H 155 H Blood Type Antibody Screen Crossmatch 01/16/17 01/16/17 17:06 20:09 POC Glucose 127 H Blood Type O POSITIVE Antibody Screen NEGATIVE Crossmatch See Detail Consult Discharge Plan - Plan Referrals: NO,PCP [Primary Care Provider] - (patient is seeing with regina) Hima Zuniga MD [Partnered Physician] - 01/19/17 1:10 pm
[2017-01-17] MEDS: *HR* OxyCODONE Immed Rel 15 MG TABLET PO PRN (13:19)
[2017-01-17 14:13] LABS: Mean Platelet Volume 10.4 fL (9.4-12.4); Retculocyte # 0.05 M/mcL (0.05-0.10); Reticulocyte % 1.8 % (1.6-2.8)
[2017-01-17 14:14] LABS: Basophils % 1.1 %; Eosinophils # 0.1 K/mcL (0.0-0.6); Eosinophils % 6.7 %; Hematocrit 25.3 % (37.5-50.1); Hemoglobin 8.5 g/dL (12.9-16.9); Immature Granulocytes % 1.1 % (0-4); Lymphocytes # 0.4 K/mcL (0.6-4.6); Lymphocytes % 40.4 %; Mean Corpuscular HGB Conc 33.6 g/dL (31.6-35.5); Mean Corpuscular Hemoglobin 30.8 pg (28.0-33.3); Mean Corpuscular Volume 91.7 fL (83.0-100.0); Monocytes % 2.2 %; Neutrophils # 0.4 K/mcL (1.6-8.9); Nucleated Red Blood Cells 2.2 /100 WBC (0); Platelet Count 106 K/mcL (140-400); Red Blood Count 2.76 M/mcL (4.19-5.50); Red Cell Distribution Width 22.2 % (11.5-14.5); Segmented Neutrophils % 48.5 %
[2017-01-17 14:31] LABS: Potassium 4.1 mEq/L (3.5-4.5)
[2017-01-17 14:56] LABS: Thyroid Stimulating Hormone 1.728 mcIU/mL (0.350-4.840)
[2017-01-17 15:03] LABS: Anisocytosis 2+ (Not Present); Macrocytosis Present (Not Present)
[2017-01-17 15:04] LABS: Platelet Estimate Slight Decrease (Normal)
[2017-01-17 15:10] LABS: Folate 14.2 ng/mL (7.0-31.4)
[2017-01-17] MEDS ORDERED: 0.9 % Sodium Chloride 1,000 ML IVC SCH ×3 (17:30→21:45)
--- NOTE | 2017-01-17 17:30 | Internal Med Progress Note ---
Date of Encounter: 01/17/17 Time of Encounter: 11:00 - Assessment and plan (1) Chronic diastolic heart failure Current Visit: Yes Status: Acute Assessment and plan: He was taking Lasix at home. Currently creatinine is increasing. Lasix was held. I will continue to hold and monitor clinically. (2) DVT prophylaxis Current Visit: Yes Status: Acute Assessment and plan: SCDs only as he is a not a candidate for pharmacological prophylaxis due to thrombocytopenia. Once platelet count greater than 100 we will consider starting heparin subcutaneous. 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 showed significant splenomegaly (21 cm) with concern about infarct/ splenic lesions. 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 Bone marrow cytogenetics showed positive [place] chromosome in 19 of 20 cells analyzed typical of CML. No other cytogenetic abnormalities of deleterious mutations. Peripheral blood was positive for BCR ABL 1 P210 fusion transcript (41%) confirming CML diagnosis (4) Neutropenic fever Current Visit: Yes Status: Acute Assessment and plan: 12/17/2016: Continue with Neupogen. Appreciate oncology recommendations. White blood cell count trending up. Continue with neutropenic precautions. 12/16/2016: We will continue with cefepime and Levaquin. Follow-up cultures. 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 (6) Chronic kidney disease, stage III (moderate) Current Visit: Yes Status: Acute Assessment and plan: 01/17/2017: Creatinine improving with IV fluids. Avoid nephrotoxins. Hold Lasix. We will continue with gentle IV fluid hydration. 01/16/2017: Worsening today. Likely acute on chronic renal failure. We will avoid nephrotoxins. We will start IV fluids are atenolol 1000 mL. Monitor kidney function. If worsening will obtain imaging. (7) Delirium Current Visit: Yes Status: Acute Assessment and plan: Likely secondary to pneumonia, medical disease of advanced age and unfamiliar environment. Avoid psychotropic and sedative medication as much as possible. Continue with frequent reorientation. Extended visitation hours for family. (8) Anemia Current Visit: Yes Status: Chronic Assessment and plan: He responded well to one unit of blood transfusion, hemoglobin increased appropriately. We will continue to monitor. 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 He was acutely delirious last night and had increased confusion and required Ativan and hold all. Currently the patient is calm and pleasant but tearful at times. He denies chest pain and shortness of breath. According to the patient's daughter he appears to be breathing easier and his cough has improved over the last 2 days. 01/16/2017: The patient was admitted 4 days ago and treated for neutropenic fever and pneumonia. Today he has confused and agitated and cannot provide any history due to delirium. - Constitutional Vitals: Temp Pulse Resp BP Pulse Ox 98.2 F 86 18 157/73 97 01/17/17 17:02 01/17/17 17:02 01/17/17 17:02 01/17/17 17:02 01/17/17 17:02 General appearance: Present: cooperative, A&O X 1, mild distress, answers questions appropriately - Eye Eye exam: Present: PERRL, conjuntiva pink, sclera anicteric Pupils: Present: PERRL - Respiratory Respiratory exam: Present: CTAB. Absent: accessory muscle use, rales, rhonchi, wheezes - Cardiovascular Cardiovascular exam: Present: RRR, +S1, +S2. Absent: diastolic murmur, gallop, rubs, systolic murmur - GI/Abdominal GI/Abdominal exam: Present: normal bowel sounds, soft, no peritoneal signs. Absent: distended, tenderness - Neurological Exam Neurological exam: Present: CN II-XII intact, no focal deficits. Absent: pronater drift, facial droop, speech deficit Internal Medicine: Result - Labs CBC & Chem 7: 01/17/17 14:02 01/17/17 14:02 Labs: Short CBC 01/17/17 Range/Units 14:02 WBC 0.9 L* (4.3-11.1) K/mcL Hgb 8.5 L D (12.9-16.9) g/dL Hct 25.3 L (37.5-50.1) % Plt Count 106 L (140-400) K/mcL Neutrophils # 0.4 L (1.6-8.9) K/mcL BMP 01/17/17 14:02 Sodium 139 Potassium 4.1 Chloride 104 Carbon Dioxide 29 BUN 30 H Creatinine 1.94 H Glucose 156 H Calcium 9.0 - VTE Documentation of Mechanical Device: Intermittent pneumatic compression device Consult Discharge Plan - Plan Referrals: NO,PCP [Primary Care Provider] - (patient is seeing with regina) Hima Zuniga MD [Partnered Physician] - 01/19/17 1:10 pm
[2017-01-17] MEDS ORDERED: 0.9 % Sodium Chloride 500 ML IVC SCH (18:15)
[2017-01-18 05:40] LABS: Hemoglobin 7.6 g/dL (12.9-16.9); Mean Platelet Volume 11.2 fL (9.4-12.4)
[2017-01-18 05:42] LABS: Eosinophils # 0.1 K/mcL (0.0-0.6); Eosinophils % 4.9 %; Hematocrit 23.1 % (37.5-50.1); Immature Granulocytes % 8.7 % (0-4); Lymphocytes # 0.4 K/mcL (0.6-4.6); Mean Corpuscular HGB Conc 32.9 g/dL (31.6-35.5); Mean Corpuscular Hemoglobin 30.5 pg (28.0-33.3); Mean Corpuscular Volume 92.8 fL (83.0-100.0); Monocytes % 3.9 %; Neutrophils # 0.5 K/mcL (1.6-8.9); Red Blood Count 2.49 M/mcL (4.19-5.50); Red Cell Distribution Width 22.3 % (11.5-14.5); Segmented Neutrophils % 46.5 %
[2017-01-18 05:50] LABS: Calcium 8.8 mg/dL (8.6-10.8); Platelet Count 93 K/mcL (140-400); Potassium 3.9 mEq/L (3.5-4.5)
[2017-01-18 06:06] LABS: Anisocytosis 2+ (Not Present); Microcytosis Present (Not Present)
[2017-01-18 06:07] LABS: Platelet Estimate Decreased (Normal)
[2017-01-18] MEDS: Cefepime HCl 2,000 MG in D5% in Water (Mini-Bag+) 100 ML IVPB SCH (06:37)
[2017-01-18] MEDS: Levothyroxine 25 MCG TABLET PO SCH (06:38)
[2017-01-18] MEDS: Pantoprazole 40 MG VIAL IVP SCH (09:17)
[2017-01-18] MEDS: Folic Acid 1 MG TABLET PO SCH (09:17)
[2017-01-18] MEDS: Aspirin 81 MG TAB.CHEW PO SCH (09:17)
[2017-01-18] MEDS: Insulin LISPRO 300 UNITS/3 ML VIAL SQ SCH ×4 (09:22→21:34)
[2017-01-18] MEDS: Budesonide/Formoterol 80/4.5 MDI IH SCH ×2 (10:42→21:13)
--- NOTE | 2017-01-18 10:59 | Internal Med Progress Note ---
Date of Encounter: 01/18/17 Time of Encounter: 10:56 - Assessment and plan (1) Chronic diastolic heart failure Current Visit: Yes Status: Acute Assessment and plan: He was taking Lasix at home. Currently creatinine has stabilized. Lasix was held. I will continue to hold Lasix and monitor clinically. There is no evidence of exacerbation at this time. (2) DVT prophylaxis Current Visit: Yes Status: Acute Assessment and plan: SCDs only as he is a not a candidate for pharmacological prophylaxis due to thrombocytopenia. Once platelet count greater than 100 we will consider starting heparin subcutaneous. 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 showed significant splenomegaly (21 cm) with concern about infarct/ splenic lesions. 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 Bone marrow cytogenetics showed positive [place] chromosome in 19 of 20 cells analyzed typical of CML. No other cytogenetic abnormalities of deleterious mutations. Peripheral blood was positive for BCR ABL 1 P210 fusion transcript (41%) confirming CML diagnosis (4) Neutropenic fever Current Visit: Yes Status: Acute Assessment and plan: 01/18/2017: WBC is 1000. Patient has been afebrile for the last 2 days. He completed 6 days of antibiotics. Cultures have remained negative. I will stop antibiotics. 01/17/2017: Continue with Neupogen. Appreciate oncology recommendations. White blood cell count trending up. Continue with neutropenic precautions. 01/16/2017: We will continue with cefepime and Levaquin. Follow-up cultures. 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 (6) Chronic kidney disease, stage III (moderate) Current Visit: Yes Status: Acute Assessment and plan: 01/18/2017: Kidney function continues to improve. Continue to hold Lasix. Stop IV fluids. Encourage oral hydration. 01/17/2017: Creatinine improving with IV fluids. Avoid nephrotoxins. Hold Lasix. We will continue with gentle IV fluid hydration. 01/16/2017: Worsening today. Likely acute on chronic renal failure. We will avoid nephrotoxins. We will start IV fluids are atenolol 1000 mL. Monitor kidney function. If worsening will obtain imaging. (7) Delirium Current Visit: Yes Status: Acute Assessment and plan: Likely secondary to pneumonia, medical disease of advanced age and unfamiliar environment. Avoid psychotropic and sedative medication as much as possible. Continue with frequent reorientation. Extended visitation hours for family. (8) Anemia Current Visit: Yes Status: Chronic Assessment and plan: He responded well to one unit of blood transfusion, hemoglobin increased appropriately. We will continue to monitor. 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 Denies chest pain and shortness of breath. Denies cough. 01/17/2017: Patient remains confused, per nursing staff. He was acutely delirious last night and had increased confusion and required Ativan and hold all. Currently the patient is calm and pleasant but tearful at times. He denies chest pain and shortness of breath. According to the patient's daughter he appears to be breathing easier and his cough has improved over the last 2 days. 01/16/2017: The patient was admitted 4 days ago and treated for neutropenic fever and pneumonia. Today he has confused and agitated and cannot provide any history due to delirium. - Constitutional Vitals: Temp Pulse Resp BP Pulse Ox 97.6 F 89 18 167/66 97 01/18/17 07:17 01/18/17 07:17 01/18/17 10:43 01/18/17 07:17 01/18/17 10:43 General appearance: Present: cooperative, A&O X 2, no acute distress, answers questions appropriately - Eye Eye exam: Present: PERRL, conjuntiva pink, sclera anicteric Pupils: Present: PERRL - Respiratory Respiratory exam: Present: CTAB. Absent: accessory muscle use, rales, rhonchi, wheezes - Cardiovascular Cardiovascular exam: Present: RRR, +S1, +S2. Absent: diastolic murmur, gallop, rubs, systolic murmur - GI/Abdominal GI/Abdominal exam: Present: normal bowel sounds, soft, no peritoneal signs. Absent: distended, tenderness - Extremities Exam Extremities exam: Present: warm, radial pulses palpable and symetrical. Absent : calf tenderness, cyanotic, pedal edema - Skin Skin exam: Present: dry, intact Internal Medicine: Result - Labs CBC & Chem 7: 01/18/17 04:32 01/18/17 04:32 Labs: Short CBC 01/17/17 01/18/17 Range/Units 14:02 04:32 WBC 0.9 L* 1.0 L* (4.3-11.1) K/mcL Hgb 8.5 L D 7.6 L (12.9-16.9) g/dL Hct 25.3 L 23.1 L (37.5-50.1) % Plt Count 106 L 93 L (140-400) K/mcL Neutrophils # 0.4 L 0.5 L (1.6-8.9) K/mcL BMP 01/17/17 01/18/17 14:02 04:32 Sodium 139 142 Potassium 4.1 3.9 Chloride 104 107 Carbon Dioxide 29 27 BUN 30 H 25 Creatinine 1.94 H 1.55 H Glucose 156 H 93 Calcium 9.0 8.8 - Impressions Impressions Abdomen Ultrasound 01/18/17 08:30 IMPRESSION: 1. Spleen remains enlarged, measuring 15.9 cm. A 5.2 cm hypoechoic lesion appears slightly smaller than on the prior study and is nonspecific but could relate to an area of infarct. Consider further evaluation with contrast-enhanced CT or MRI. 2. Mildly coarse echogenicity of the liver is nonspecific. No discrete lesion seen. 3. Common duct caliber of 10 mm is likely normal status post cholecystectomy. D/ / Adair Cannon MD / Adair Cannon MD Interpreting Provider: Adair Cannon MD - VTE Documentation of Mechanical Device: Intermittent pneumatic compression device Consult Discharge Plan - Plan Referrals: NO,PCP [Primary Care Provider] - (patient is seeing with regina) Hima Zuniga MD [Partnered Physician] - 01/19/17 1:10 pm
[2017-01-18] MEDS ORDERED: 0.9 % Sodium Chloride 250 ML ONE ×2 (13:48→17:06)
[2017-01-18] MEDS: *HR* OxyCODONE Immed Rel 15 MG TABLET PO PRN (16:40)
[2017-01-19 05:51] LABS: Eosinophils # 0.1 K/mcL (0.0-0.6); Hematocrit 25.4 % (37.5-50.1); Hemoglobin 8.4 g/dL (12.9-16.9); Mean Corpuscular HGB Conc 33.1 g/dL (31.6-35.5); Mean Corpuscular Hemoglobin 31.2 pg (28.0-33.3); Mean Corpuscular Volume 94.4 fL (83.0-100.0); Mean Platelet Volume 10.9 fL (9.4-12.4); Monocytes # 0.1 K/mcL (0.0-1.3); Nucleated Red Blood Cells 1.6 /100 WBC (0); Red Blood Count 2.69 M/mcL (4.19-5.50)
[2017-01-19 05:58] LABS: Platelet Count 80 K/mcL (140-400)
[2017-01-19] MEDS: Levothyroxine 25 MCG TABLET PO SCH (06:04)
[2017-01-19 06:06] LABS: BUN/Creatinine Ratio 17 (6-26); Blood Urea Nitrogen 22 mg/dL (8-26); Calcium 8.7 mg/dL (8.6-10.8); Carbon Dioxide 26 mEq/L (19-29); Chloride 109 mEq/L (98-109); Glucose 102 mg/dL (70-99); Osmolality,Calculated 298 (280-300); Sodium 142 mEq/L (136-145); eGFR For African Americans > 60 (> 60); eGFR For Non-African Americans 52 (> 60)
[2017-01-19 06:12] LABS: Potassium 4.1 mEq/L (3.5-4.5)
[2017-01-19 06:32] LABS: Anisocytosis 2+ (Not Present); Lymphocytes # 0.5 K/mcL (0.6-4.6); Neutrophils # 0.7 K/mcL (1.6-8.9); Platelet Estimate Decreased (Normal)
[2017-01-19] MEDS: Insulin LISPRO 300 UNITS/3 ML VIAL SQ SCH ×2 (08:00→12:15)
[2017-01-19] MEDS: Budesonide/Formoterol 80/4.5 MDI IH SCH (08:34)
[2017-01-19] MEDS: Pantoprazole 40 MG VIAL IVP SCH (09:12)
[2017-01-19] MEDS: Aspirin 81 MG TAB.CHEW PO SCH (09:12)
[2017-01-19] MEDS: Folic Acid 1 MG TABLET PO SCH (09:12)
[2017-01-19] MEDS: *HR* OxyCODONE Immed Rel 15 MG TABLET PO PRN (09:17)
--- NOTE | 2017-01-19 10:56 | Discharge Summary ---
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, antineoplastic chemotherapy-induced Qualified Code(s): D61.810 - Antineoplastic chemotherapy induced pancytopenia (8) Right upper lobe pneumonia Priority: Primary Status: Acute Qualifiers: Pneumonia type: due to unspecified organism Qualified Code(s): J18.1 - Lobar pneumonia, unspecified organism (9) Pulmonary edema Priority: Secondary Status: Acute Qualifiers: Chronicity: acute Qualified Code(s): J81.0 - Acute pulmonary edema - Discharge Medications Prescriptions: Cefdinir [Omnicef] 300 mg PO BID #14 capsule Home Medications: Aspirin 81 mg PO DAILY 11/29/16 [History] Carvedilol [Coreg] 25 mg PO BID 11/29/16 [History] Cyclobenzaprine [Flexeril] 10 mg PO HS 11/29/16 [History] Fluticasone/Salmeterol [Advair 100-50 Diskus] 1 puff IH Q12H 11/29/16 [History] Glimepiride [Amaryl] 4 mg PO DAILY 11/29/16 [History] Oxycodone HCl [Roxicodone 30 MG Immed Release] 30 mg PO Q6H PRN 11/29/16 [ History] Pravastatin Sodium [Pravachol] 40 mg PO DAILY 11/29/16 [History] Zolpidem [Ambien] 5 mg PO HS PRN 11/29/16 [History] Folic Acid 1 mg PO DAILY #90 tablet 12/01/16 [Rx] Levothyroxine [Synthroid] 25 mcg PO 0630 #30 tablet 12/01/16 [Rx] Oxygen 1 each .ROUTE AD #1 each 01/05/17 [Rx] Cefdinir [Omnicef] 300 mg PO BID #14 capsule 01/19/17 [Rx] Allergies/Adverse Reactions: Allergies ciprofloxacin Allergy (Unknown, Verified 01/12/17 10:53) Hives morphine Allergy (Unknown, Verified 01/12/17 10:53) Hallucinating Penicillins Allergy (Unknown, Verified 01/12/17 10:53) Swelling of Lip/Tongue/Throat Procedures/tests Complete & Pending: Procedures Performed prior 72 hours Category Date Time Status US abdomen limited [US] Routine Exams 01/18/17 08:30 Completed Date of admission: 01/12/17 08:50 Primary care physician: PCP NO Consults: 01/12/17 09:32 Consult to Oncology Hematology [CONS] Routine Consulting Provider: Phil Winters Jr Reason for Consult: CML with neutropenic fever/ pneumonia on dasatinib and mybertiq Time Notified: 09:33 Call Completed: Yes - Patient Status Disposition: Home, Self-Care Condition: Good Functional capacity at discharge: independent ambulation Overall status at discharge: patient is progressing back to baseline - Discharge Instructions Follow Up With: NO,PCP [Primary Care Provider] - (patient is seeing with regina) Hima Zuniga MD [Partnered Physician] - 01/31/17 8:30 am (FOLLOW UP WITH TANA MAC CNP) Additional Instructions: Follow-up with your PCP and one week. If you have fever, chest pain or severe diarrhea please return to the hospital. - Diet and Activity Activity: increase activity as tolerated Diet: advance to your usual diet Hospital course: Mr. Parks is a 81 year old male with past medical history of chronic heart failure and CML who was brought to the hospital for evaluation of shortness of breath and confusion. He was admitted to the medical service and treated with broad-spectrum IV antibiotics for neutropenic fever and pneumonia. He made a slow clinical improvement. His course was complicated by delirium. Mental status is back to baseline. He completed IV antibiotics for pneumonia and neutropenic fever. He received supportive blood transfusion to which he responded well. Currently the patient has been afebrile, tolerated a diet and is ambulatory. He will be discharged home with close follow-up with primary care physician and oncologist. - Time Spent with Patient Total time spent providing and/or coordinating discharge services: Greater than 30 minutes - Constitutional Vitals: Temp Pulse Resp BP Pulse Ox 97.8 F 79 16 158/66 96 01/19/17 07:25 01/19/17 07:25 01/19/17 08:35 01/19/17 07:25 01/19/17 08:35 General appearance: Present: cooperative, A&O X 2, no acute distress, answers questions appropriately - Respiratory Respiratory exam: Present: CTAB. Absent: accessory muscle use, rales, rhonchi, wheezes - Cardiovascular Cardiovascular exam: Present: RRR, +S1, +S2. Absent: diastolic murmur, gallop, rubs, systolic murmur - VTE Documentation of Mechanical Device: Intermittent pneumatic compression device
[2017-01-19 11:08] VITALS: BP 146/62
[2017-01-19] MEDS ORDERED: Cefdinir 300 MG CAPSULE PO SCH (11:15)
[2017-01-19 14:46] LABS: MMA (VIT B12 STATUS) 0.49 umol/L (0.00-0.40)
== END 2017-01-19 14:47 | disposition home or self-care (01) ==
LOC: 2ANU → SUATTDRO 08:50 → 2ANU 01-17 04:57
PROVIDERS: ADMIT Family Medicine; ATTEND Internal Medicine